=== PATIENT | female | born 1955 | race Caucasian/White ===

== ENCOUNTER 2020-11-05 08:39 | Day surgery (SDC) | payer OTHER ==
--- OUTSIDE RECORDS SUMMARY | 2020-10-15 10:21 | XMSREPORT | Referral Summary ---
:1955 Author Organization [facility] Address [address] [place] [address] [address] [place] [address] Care Team Providers Name Role Phone Burke Mcdaniel PA-C Attributed Provider Burke Mcdaniel PA-C Primary Care Provider Reason for Referral Transitions of Care (Routine) Status Reason Specialty Diagnoses / Referred By Referred To Procedures Contact Contact New Request Service Not Diagnoses Gastroesophageal reflux disease, unspecified whether esophagitis present Dysphagia, unspecified type Jessica Mcdaniel, Health, Chi Available at PA-C [facility] [address] [place] [id number] Phone: Fax: [facility] Prior Auth (Routine) Status Reason Specialty Diagnoses / Referred By Referred To Procedures Contact Contact NOT REQUIRED Diagnoses Visit for screening mammogram Jessica Mcdaniel PA-C Procedures MAMMOGRAM ELINA DIGITAL SCREENING [facility] [address] [place] [address] Reason for Visit Reason Comments Wellness Physical Encounter Details Date Type Department Care Team Description 10/15/2020 Office Visit Jessica Mcdaniel Pure hyperch olesterolemia (Primary Dx); [facility] Papillary fibroelastoma of heart; [address] Migraine without status migr ainosus, not intractable, unspecified migraine type; [place] [address] [address] Annual physical exam; [phone] [place], [place] Visit for letha ferraro mammogram; [id number] Essential hypertension; [phone] Gastroesophageal reflux disease, unspeci fied whether esophagitis present; [phone] Dysphagia, unsp ecified type (Fax) Allergies Active Allergy Reactions Severity Noted Date Comments Budeprion Xl Other (Specify in Low 12/02/2016 Dysphoric MANAGER HEALTH Comments) stimulation, di zziness, & nausea Codeine Nausea and Vomiting, 07/17/2012 Diarrhea Latex Hives (High), Rash High 07/17/2012 Sulfa Drugs Hives (High), Rash High 07/17/2012 Viibryd Other (Specify in 10/12/2017 Muscle cracking still operator mping Comments) documented as of this encounter (statuses as of 10/15/2020) Medications Medication Sig Dispensed Refills Start End Status Date Date Multiple Take by 0 Active Vitamins-Minerals mouth 1 time (MULTIVITAMIN PO) per day. Ibuprofen (IBU-200 PO) Take 2-3 0 Active tablets by mouth every 6 hours as needed. omega-3 fatty acids Take 1,200 0 Active (FISH OIL MAXIMUM mg by mouth STRENGTH) 1200 MG 1 time per capsule day. VITAMIN D, Take by 0 Active CHOLECALCIFEROL, PO mouth 1 time per day. Magnesium Citrate 200 MG Take 1 0 Active TABS tablet by mouth 1 time per day Turmeric Curcumin 500 MG Take 1 0 Active CAPS capsule by mouth 1 time per day fluticasone (FLONASE) 50 [place] 2 16 g 6 07/12/20 Active mcg/spray nasal sprays into 18 sprayIndications: each nostril Chronic allergic 1 time per rhinitis day sumatriptan (IMITREX) Take 0.5-1 10 tablet 1 10/11/19 Active 100 mg tablets 20 tabletIndications: (50-100 mg) Migraine without status by mouth as migrainosus, not needed for intractable, unspecified migraine migraine type Take at onset of headache, may repeat in 2 hours if needed. hydroCHLOROthiazide 12.5 Take 1 90 tablet 3 10/15/19 Active mg tabletIndications: tablet (12.5 21 Essential hypertension mg) by mouth 1 time a day in the morning atorvaSTATin (LIPITOR) Take 1 90 tablet 3 10/15/19 Active 20 mg tabletIndications: tablet (20 21 Pure mg) by mouth hypercholesterolemia every night at bedtime omeprazole (PRILOSEC) 20 Take 1 90 capsule 0 10/15/19 Active mg capsuleIndications: capsule (20 21 Gastroesophageal reflux mg) by mouth disease, unspecified 1 time a day whether esophagitis in the present, Dysphagia, morning unspecified type atorvaSTATin (LIPITOR) Take 1 90 tablet 3 10/11/19 Discontinued 20 mg tabletIndications: tablet (20 20 021 (Reorder) Pure mg) by mouth hypercholesterolemia every night at bedtime hydroCHLOROthiazide 12.5 Take 1 30 tablet 0 09/24/1910/15 Discontinued mg tabletIndications: tablet (12.5 21 021 (Reorder) Essential hypertension mg) by mouth 1 time a day in the morning documented as of this encounter (statuses as of 10/15/2020) Active Problems Problem Noted Date GERD (gastroesophageal reflux disease) 01/15/2015 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 Surgery in 2000 at [facility] [place] Pure hypercholesterolemia 02/25/2011 Migraine 10/19/2009 Allergic rhinitis 02/07/2003 documented as of this encounter (statuses as of 10/15/2020) Resolved Problems Problem Noted Date Resolved Date Depression 01/15/2015 07/12/2017 Prolonged Q-T interval on ECG 07/12/2013 01/15/2015 Palpitations 01/15/2015 documented as of this encounter (statuses as of 10/15/2020) Immunizations Name Administration Dates Next Due FLU VACCINE TRIVALENT 06/20/2013 MULTIDOSE(Fluvirin,Afluria) Influenza Trivalent w/preserv 07/19/2004 FLU VACCINE SINGLE DOSE 06/02/2016 0.5mL(6MO+Fluzone/Flulaval/Fluarix,3Y R+Afluria) H1N1 Vaccine W/preservative 3yr+ 07/02/2009 Influenza Vaccine 06/05/2014 Influenza Vaccine,unspecified 06/03/2020, 07/04/2019, 2017, 05/25/2017, 06/02/2016, 06/11/2015, 06/05/2014, 06/20/2013, 05/26/2011, 06/17/2010, 05/11/2009, 07/31/2008 Moderna COVID-19 Vaccine 09/30/2020, 09/02/2020 TD,not adsorbed 05/25/2017 TDAP 02/24/2011 Td(adult)preservative free 11/23/2017 Zoster Recombinant (Shingrix) 08/24/2018, 05/24/2018 documented as of this encounter Social History Tobacco Use Types Packs/Day Years Used Date Never Smoker Smokeless Tobacco: Never Used Alcohol Use Drinks/Week oz/Week Comments Yes 3 Glasses of wine 6.0 3 Cans of beer Alcohol Habits Answer Date Recorded How often do you have a drink containing 4 or more times a w [place] 10/10/2019 alcohol? How many drinks containing alcohol do you have 1 or 2 10/10/2019 on a typical day when you are drinking? How often do you have six or more drinks on one Never 10/10/2019 occasion? Social Isolation Answer Date Recorded In a typical week, how many times do you Three times a week 10/08/2020 talk on the phone with family, friends, or neighbors? How often do you get together with friends Once a week 10/08/2020 or relatives? How often do you attend orthodox or zoroastrian More than 4 time s per year 10/10/2019 services? Do you belong to any clubs or organizations Yes 10/10/2019 such as orthodox groups, unions, fraternal or athletic groups, or school groups? How often do you attend meetings of the More than 4 times pe r year 10/10/2019 clubs or organizations you belong to? Are you now , , , 10/10/2019 , never or living with a partner? Physical Activity Answer Date Recorded On average, how many days per week do you engage in moderate to 1 day 10/10/2019 strenuous exercise (like walking fast, running, jogging, dancing, swimming, biking, or other activities that cause a light or heavy sweat)? On average, how many minutes do you engage in exercise at th is 20 min 10/10/2019 level? Stress Answer Date Recorded Do you feel stress - tense, restless, nervous, or To some ex tent 10/10/2019 anxious, or unable to sleep at night because your mind is troubled all the time - these days? Education Answer Date Recorded What is the highest level of school Associate degree: [employer], 10/10/2019 you have completed or the highest technical, or vocational burke yang degree you have received? Financial Resource Strain Answer Date Recorded How hard is it for you to pay for the very basics like Not maryann kuo hard 10/10/2019 food, housing, medical care, and heating? Intimate Partner Violence Answer Date Recorded Within the last year, have you been afraid of your partner o r No 10/10/2019 ex-partner? Within the last year, have you been humiliated or emotionall y No 10/10/2019 abused in other ways by your partner or ex-partner? Within the last year, have you been kicked, hit, slapped, or No 10/10/2019 otherwise physically hurt by your partner or ex-partner? Within the last year, have you been raped or forced to have any No 10/10/2019 kind of sexual activity by your partner or ex-partner? Food Insecurity Answer Date Recorded Within the past 12 months, you worried that your food would Never true 10/10/2019 run out before you got money to buy more. Within the past 12 months, the food you bought just didn't N ever true 10/10/2019 last and you didn't have money to get more. Transportation Needs Answer Date Recorded In the past 12 months, has lack of transportation kept you f rom No 10/10/2019 medical appointments or from getting medications? In the past 12 months, has lack of transportation kept you f rom No 10/10/2019 meetings, work, or getting things needed for daily living? Sex Assigned at Date Recorded Female 10/10/2019 6:39 PM MANAGER BRANCH documented as of this encounter Last Filed Vital Signs Vital Sign Reading Time Taken Comments Blood Pressure 114/72 10/15/2020 9:06 AM MANAGER BRANCH Pulse 72 10/15/2020 9:06 AM MANAGER BRAN[facility] Temperature - - Respiratory Rate - - Oxygen Saturation 97% 10/15/2020 9:06 AM MANAGER BRANCH Inhaled Oxygen Concentration - - Weight 80.1 kg (176 lb 9.6 oz) 10/15/2020 9:06 AM MANAGER BRAN[facility] Height 167.6 cm (5' 6") 10/15/2020 9:06 AM MANAGER BRANCH Body Mass Index 28.5 10/15/2020 9:06 AM MANAGER BRANCH documented in this encounter Functional Status Functional Status Response Date of Assessment Do you have difficulty with walking, balance, climbing No 07/12/2018 stairs, or had a fall in the last 3 months? documented as of this encounter Patient Instructions Patient InstructionsJessica Mcdaniel PA-C - 10/15/2020 9:00 AM CST Your sugar, electrolytes, liver function, and kidney function were all found to be normal. Lab Results Component Value Date GLUCOSE 89 10/08/2020 BUN 19 10/08/2020 CREATSERUM 0.77 10/08/2020 BCRATIO 24.7 10/08/2020 NA 141 10/08/2020 POTASSIUM 4.1 10/08/2020 CL 106 10/08/2020 CO2 27 10/08/2020 CA 8.8 10/08/2020 PROTEINTOTAL 7.3 10/08/2020 ALBUMIN 4.2 10/08/2020 ALKPHOS 73 10/08/2020 AST 22 10/08/2020 ALT 17 10/08/2020 BILITOTAL 0.5 10/08/2020 EGFR 76 10/08/2020 Cholesterol is nicely controlled with atorvastatin 20mg. Continue this without changes. Lab Results Component Value Date CHOLESTEROL 156 10/08/2020 HDLCHOL 55 10/08/2020 LDL 87 10/08/2020 TRIGLYCERIDE 70 10/08/2020 Due for updated mammogram after November 07. Call [facility] to schedule this. Due for updated colonoscopy after June 21. Call around that time to get this scheduled. Restart omeprazole 20mg daily and see if your reflux symptoms improve. Let me know how things are going in 4-6 weeks. Avoid spicy, carbonated, citrus foods. 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
[2020-11-05] MEDS ORDERED: Propofol 200 MG/20 ML SDV ONE ×3 (08:44→10:06)
[2020-11-05] MEDS ORDERED: Lactated Ringers 1,000 ML IV SCH (08:45)
[2020-11-05] MEDS ORDERED: Sodium Chloride 0.9% 10 ML Syringe FLUSH PRN (08:45)
[2020-11-05] MEDS ORDERED: Midazolam 1 MG/ML 2 ML SDV ONE ×2 (08:49→10:06)
--- NOTE | 2020-11-05 10:01 | PCM.PN ---
- General Info Date of Service: 11/05/20 - Review of Systems Systems Review Comment:: 64-year-old female with recent symptoms of dysphagia and belching along with aching in her her upper chest here for EGD. She is medically stable to proceed today. Her recent history and physical is reviewed and no significant changes are noted. I have discussed the proposed EGD with the patient. She agrees to proceed. - Patient Data Vitals - Most Recent: Last Vital Signs Temp 97.8 F 11/05/20 09:16 Pulse 59 L 11/05/20 09:16 Resp 20 11/05/20 09:16 BP 124/75 11/05/20 09:16 Pulse Ox 98 11/05/20 09:16 Weight - Most Recent: 80.739 kg Med Orders - Current: Current Medications Lactated Ringer's (Ringers, Lactated) 1,000 mls @ 125 mls/hr IV ASDIRECTED JOSE MANUEL Last Admin: 11/05/20 09:00 Dose: 125 mls/hr Documented by: Sodium Chloride (Saline Flush) 10 ml FLUSH ASDIRECTED PRN PRN Reason: Keep Vein Open Sepsis Event Note - Focused Exam Vital Signs: Vital Signs Temp Pulse Resp BP Pulse Ox 11/05/20 09:16 97.8 F 59 L 20 124/75 98 - Problem List Review Problem List Initiated/Reviewed/Updated: Yes - My Orders Last 24 Hours: My Active Orders 11/05/20 08:45 Patient Status [ADT] Routine Peripheral IV Care [RC] . DIRECTED Verify Patient Consent Obtain [RC] ASDIRECTED Lactated Ringers [Ringers, Lactated] 1,000 ml IV ASDIRECTED Sodium Chloride 0.9% [Saline Flush] 10 ml FLUSH ASDIRECTED PRN Peripheral IV Insertion Adult [OM.PC] Routine - Assessment Assessment:: GERD symptoms - Plan Plan:: EGD
[2020-11-05] MEDS ORDERED: Lidocaine 2% 5 ML SDV ONE (10:06)
--- NOTE | 2020-11-05 10:32 | PCM.OPNOTE ---
- General Post-Op/Procedure Note Date of Surgery/Procedure: 11/05/20 Operative Procedure(s): EGD with Biopsy Findings: Mild inflammation at GE Jct without stricture Exam otherwise normal Pre Op Diagnosis: GERD Post-Op Diagnosis: Reflux esophagitis Anesthesia Technique: [facility] Primary Surgeon: Edilberto Lyle Pathology: Biopsies in stomach and esophagus EBL in mLs: 3 Complications: None Condition: Good
--- NOTE | 2020-11-05 11:17 | OR ---
Date of Procedure: 11/05/2020 PREOPERATIVE DIAGNOSIS: GERD. POSTOPERATIVE DIAGNOSES: Reflux esophagitis. OPERATION PERFORMED: Esophagogastroduodenoscopy with biopsy. INDICATIONS FOR SURGERY: This 64-year-old female has been having some increasing symptoms of GERD with belching and some dysphagia. She is referred for EGD. FINDINGS: The patient has a mild degree of inflammation at the GE junction, which otherwise appears distinct and normal. I do not see any signs of stricture and the remainder of the esophagus appears normal. The gastric and duodenal mucosa also appeared normal. DESCRIPTION OF PROCEDURE: The patient was taken to the operating room. She was given intravenous sedation, and with her in the left lateral decubitus position, the Olympus gastroscope was advanced through a mouth guard into the oral cavity. Under direct visualization, the scope was advanced down through the oropharynx into the esophagus. The scope was then advanced through the esophagus, stomach, and into the duodenum, where examination to the third portion was performed. After examining the duodenum, the scope was withdrawn back into the stomach where full examination including retroflexed examination of the fundus was carried out. Random biopsies of the antrum are taken to rule out H. pylori and random biopsies of the proximal stomach were also taken. The GE junction was carefully examined and biopsies of this were taken as well. Also, biopsies were taken of the upper esophagus because of the patient's symptoms. The esophagus was re-examined as the scope was removed, and after the scope was removed from the patient, the patient was taken from the operating room in satisfactory condition. ESTIMATED BLOOD LOSS: 3 mL. COMPLICATIONS: None. PROGNOSIS: Good. JESENIA Lyle MD /[id number]
[2020-11-05 12:50] VITALS: BP 115/71; PULSE 65
== END 2020-11-05 11:32 | disposition home or self-care (01) ==
LOC: LL.SDS 08:39
PROVIDERS: ATTEND Surgery
DX: K29.50 Unspecified chronic gastritis without bleeding (principal); K21.00 Gastro-esophageal reflux disease with esophagitis, without bleeding; E78.00 Pure hypercholesterolemia, unspecified; G43.909 Migraine, unspecified, not intractable, without status migrainosus; G47.33 Obstructive sleep apnea (adult) (pediatric); R13.10 Dysphagia, unspecified; Z01.812 Encounter for preprocedural laboratory examination; Z20.822 Contact with and (suspected) exposure to COVID-19; I10 Essential (primary) hypertension; Z79.899 Other long term (current) drug therapy; Z88.2 Allergy status to sulfonamides; Z91.040 Latex allergy status; Z88.5 Allergy status to narcotic agent; Z88.8 Allergy status to other drugs, medicaments and biological substances
CPT/HCPCS: 43239; 87635; J2250; J2704; J7120; 00731; U0002

== ENCOUNTER 2021-12-27 15:41 | Emergency (ER) | payer MEDICARE, OTHER ==
[2021-12-27] MEDS: Iopamidol 755 Mg/ML 100 ML Bottle IVPUSH ONE (17:00)
[2021-12-27 17:09] LABS: ANION GAP 9.8 meq/L (7-15); CHLORIDE,CL 103 mmol/L (98-107); SODIUM,NA 141 mmol/L (136-145)
[2021-12-27] MEDS: Lactated Ringers 1,000 ML IV ONE (17:19)
[2021-12-27] MEDS: Sodium Chloride 0.9% 10 ML Syringe FLUSH PRN (17:20)
[2021-12-27] MEDS: Ondansetron 4 MG/2 ML SDV IVPUSH ONE (18:53)
== END 2021-12-27 20:10 | disposition home or self-care (01) ==
LOC: LL.ED 15:41
DX: H81.10 Benign paroxysmal vertigo, unspecified ear (principal); E78.00 Pure hypercholesterolemia, unspecified; I10 Essential (primary) hypertension; K21.9 Gastro-esophageal reflux disease without esophagitis; Z79.899 Other long term (current) drug therapy; Z88.2 Allergy status to sulfonamides; Z88.8 Allergy status to other drugs, medicaments and biological substances
CPT/HCPCS: 36415; 70496; 70498; 80053; 83605; 84484; 85025; 99284; J2405; J3490; J7120; Q9967

== ENCOUNTER 2021-12-30 09:00 | Day surgery (SDC) | payer MEDICARE, OTHER ==
[~2021-12-30 09:00] MED LIST: Iopamidol 755 Mg/ML 100 ML Bottle ONE; Lactated Ringers 1,000 ML IV SCH; Midazolam 1 MG/ML 2 ML SDV ONE; Propofol 200 MG/20 ML SDV ONE; Sodium Chloride 0.9% 10 ML Syringe FLUSH PRN
[2021-12-30] MEDS ORDERED: Midazolam 1 MG/ML 2 ML SDV ONE (10:45)
[2021-12-30] MEDS ORDERED: Propofol 200 MG/20 ML SDV ONE (10:45)
== END 2021-12-30 12:50 | disposition home or self-care (01) ==
LOC: LL.SDS 09:00
PROVIDERS: ATTEND Surgery
DX: Z12.11 Encounter for screening for malignant neoplasm of colon (principal); K57.30 Diverticulosis of large intestine without perforation or abscess without bleeding; K21.9 Gastro-esophageal reflux disease without esophagitis; G43.909 Migraine, unspecified, not intractable, without status migrainosus; E78.00 Pure hypercholesterolemia, unspecified; I10 Essential (primary) hypertension; G47.33 Obstructive sleep apnea (adult) (pediatric); F32.A Depression, unspecified; Z90.49 Acquired absence of other specified parts of digestive tract; Z79.899 Other long term (current) drug therapy; Z91.040 Latex allergy status; Z88.2 Allergy status to sulfonamides; Z88.5 Allergy status to narcotic agent; Z88.8 Allergy status to other drugs, medicaments and biological substances; Z98.890 Other specified postprocedural states
CPT/HCPCS: J2250; J2704; J7120